=== PATIENT | male | born 1975 | race Caucasian/White ===

== ENCOUNTER 2016-04-21 05:30 | Emergency (ER) | payer OTHER ==
[~2016-04-21] VITALS: Ht 177.8 cm; Wt 81.4 kg
[~2016-04-21 05:30] MED LIST: CIPRO500 MG PO; DILAUDID2 MG PO; NOHOMEMEDS; PHENERGAN12.5 M1 PO; VALACYCLOVIR500 MG PO
[2016-04-21 06:01] LABS: HEMATOCRIT 47.5 % (38.0-50.0); MCH 28.8 PG (29.0-34.0); MCHC 33.7 G/DL (30.0-36.0); MCV 85.4 FL (86-99); MEAN PLAT.VOLUME 9.1 uM^3 (9.0-12.4); PLATELET COUNT 399 K/uL (156-360); RBC DIS.WIDTH-CV 12.6 % (11.8-14.6); RBC DIS.WIDTH-SD 38.8 % (39-53); RED BLOOD COUNT 5.56 M/uL (4.00-5.50); WHITE BLOOD COUNT 7.7 K/uL (4.1-10.2)
[2016-04-21 06:14] LABS: CHLORIDE 106 mEq/L (99-109); POTASSIUM 3.7 mEq/L (3.7-5.4); SODIUM 138 mEq/L (136-147)
[2016-04-21 06:16] LABS: GLUCOSE 143 mg/dL (70-99)
[2016-04-21 06:17] LABS: ANION GAP 8 MEQ/L (2-14)
[2016-04-21 06:20] LABS: GFR ESTIMATE (CALCULATED) > 59 mL/min/
[2016-04-21 06:21] LABS: UREA NITROGEN (BUN) 8 mg/dL (9-23)
[2016-04-21 06:48] LABS: TOTAL BILIRUBIN 0.7 mg/dL (0.0-1.0)
[2016-04-21 06:49] LABS: ALKALINE PHOSPHATASE 74 IU/L (3-129)
[2016-04-21 06:52] LABS: DIRECT BILIRUBIN 0.2 mg/dL (0.0-0.3)
[2016-04-21 06:53] LABS: CREATINE KINASE 50 IU/L (1-294); LIPASE 39 U/L (1.0-51.0)
[2016-04-21 07:22] LABS: ADD MIUA? NO; BILIRUBIN NEGATIVE; BLOOD NEGATIVE; COLOR YELLOW ((YELLOW)); GLUCOSE (STRIP) NEGATIVE; KETONES NEGATIVE; LEUKOCYTES NEGATIVE; NITRITE NEGATIVE; PH, URINE 6.5 (5-8); PROTEIN (STRIP) NEGATIVE; SPECIFIC GRAVITY 1.015 (1.000-1.030); UROBILINOGEN 0.2 MG/DL (0.2-1.0)
[2016-04-21 11:30] VITALS: BP 129/88
== END 2016-04-21 12:53 | disposition home or self-care (01) ==
LOC: EME 05:30
PROVIDERS: Emergency Medicine
DX: R25.2 Cramp and spasm (principal); E86.0 Dehydration; N20.0 Calculus of kidney; E78.5 Hyperlipidemia, unspecified; Z87.442 Personal history of urinary calculi; K21.9 Gastro-esophageal reflux disease without esophagitis; Z88.6 Allergy status to analgesic agent; Z88.1 Allergy status to other antibiotic agents; Z87.891 Personal history of nicotine dependence
CPT/HCPCS: 74177; 80048; 80076; 81003; 82550; 83690; 85027; 93970; 99281; 99284; J7030; S0028

== ENCOUNTER 2017-02-09 11:11 | Emergency (ER) | payer OTHER ==
[~2017-02-09] VITALS: Ht 177.8 cm; Wt 86.0 kg
[2017-02-09 13:50] VITALS: BP 164/99
== END 2017-02-09 13:52 | disposition home or self-care (01) ==
LOC: EME 11:11
DX: S39.012A Strain of muscle, fascia and tendon of lower back, initial encounter (principal); X50.1XXA Overexertion from prolonged static or awkward postures, initial encounter; Y93.G3 Activity, cooking and baking; R11.0 Nausea; Z87.442 Personal history of urinary calculi
CPT/HCPCS: 99281; 99284